=== PATIENT | male | born 1975 | race Caucasian/White ===

== ENCOUNTER 2017-11-15 10:28 | Outpatient (CLI) | payer OTHER | END 2017-11-15 10:29 | disposition home or self-care (01) | LOC: BICCT 10:28 | PROVIDERS: ATTEND Family Medicine | DX: R10.31 Right lower quadrant pain (principal); K40.90 Unilateral inguinal hernia, without obstruction or gangrene, not specified as recurrent; K42.9 Umbilical hernia without obstruction or gangrene | CPT/HCPCS: 74176 ==

== ENCOUNTER 2020-12-16 14:00 | Outpatient (CLI) | payer OTHER | END 2020-12-16 14:01 | disposition home or self-care (01) | LOC: ULT 14:00 | PROVIDERS: ATTEND Specialist | DX: E04.9 Nontoxic goiter, unspecified (principal); N50.89 Other specified disorders of the male genital organs; I86.1 Scrotal varices | CPT/HCPCS: 76536; 76870; 93976 ==

== ENCOUNTER 2021-04-26 08:39 | Outpatient (CLI) | payer OTHER | END 2021-04-26 08:40 | disposition home or self-care (01) | LOC: MRI 08:39 | PROVIDERS: ATTEND Physical Medicine & Rehabilitation | DX: M54.50 Low back pain, unspecified (principal); M51.36 Other intervertebral disc degeneration, lumbar region; M51.37 Other intervertebral disc degeneration, lumbosacral region; M48.8X6 Other specified spondylopathies, lumbar region; R60.0 Localized edema | CPT/HCPCS: 72148 ==

== ENCOUNTER 2022-04-03 07:44 | Day surgery (SDC) | payer BC ==
[2022-04-02 15:13] VITALS: BMI 53.7
[2022-04-03] MEDS ORDERED: Ketamine 50 MG/ML (10ML VIAL) ONE (09:50)
[2022-04-03] MEDS ORDERED: Midazolam HCl 2 mg/2 ml Vial ONE (09:50)
[2022-04-03] MEDS ORDERED: PROPOFOL 200 MG/20 ML VIAL ONE (09:52)
[2022-04-03] MEDS ORDERED: Glycopyrrolate 0.2 MG/ML 5 ML SYRINGE ONE (09:52)
== END 2022-04-03 11:35 | disposition home or self-care (01) ==
LOC: SDC 07:44
PROVIDERS: ATTEND Internal Medicine Gastroenterology
PROC: 0DJ08ZZ Inspection of Upper Intestinal Tract, Via Natural or Artificial Opening Endoscopic (ICD-10-PCS; principal; 2022-04-03)
PROC: 0DJD8ZZ Inspection of Lower Intestinal Tract, Via Natural or Artificial Opening Endoscopic (ICD-10-PCS; principal; 2022-04-03)
DX: Z12.11 Encounter for screening for malignant neoplasm of colon (principal); R10.13 Epigastric pain; I25.10 Atherosclerotic heart disease of native coronary artery without angina pectoris; E78.5 Hyperlipidemia, unspecified; G47.33 Obstructive sleep apnea (adult) (pediatric); K21.9 Gastro-esophageal reflux disease without esophagitis; E03.9 Hypothyroidism, unspecified; Z79.82 Long term (current) use of aspirin; Z79.890 Hormone replacement therapy; Z79.899 Other long term (current) drug therapy
CPT/HCPCS: J2250; J2704

== ENCOUNTER 2022-04-11 07:42 | Outpatient (CLI) | payer BC | END 2022-04-11 07:43 | disposition home or self-care (01) | LOC: BICULT 07:42 | PROVIDERS: ATTEND Internal Medicine Gastroenterology | DX: R10.13 Epigastric pain (principal); R93.2 Abnormal findings on diagnostic imaging of liver and biliary tract | CPT/HCPCS: 76705 ==